=== PATIENT | male | born 1980 | race Caucasian/White ===

== ENCOUNTER 2025-04-04 16:41 | Emergency (ER) | payer BC, SELFPAY ==
[2025-04-04 16:44] VITALS: BP 136/88; PULSE 53; RESP 18; TEMP 36.6; O2SAT 98
--- NOTE | 2025-04-04 16:45 | DI.RAD_ITS ---
Exam(s) XR RIBS RT W PA LAT CHEST EXAM: XR RIBS RT W PA LAT CHEST CLINICAL HISTORY: R rib pain (7-8th ribs) after wrestling TECHNIQUE: 2D digital imaging was performed.Six images were obtained. COMPARISON: [facility] TH[facility]AC[facility] SPINE from 09/04/2014 FINDINGS: MEDIASTINUM: Normal. HEART: Normal. PULMONARY VASCULATURE: Normal. LUNGS: Clear. PLEURAL SPACE: No pleural effusion or pneumothorax. BONE:Normal. RIGHT RIBS: Normal. OTHER FINDINGS:Normal. IMPRESSION: 1. No acute pulmonary findings. 2. Unremarkable right ribs. DATA REPOSITORY: RADIATION DOSE DELIVERED:
--- NOTE | 2025-04-04 16:47 | W.ED.GENAD ---
Discharge Plan Discharge Details Chief Complaint: Chest/Rib Primary Care Provider: Unknown,Unknown ED Provider: Karen Bal Home Meds and New Rx's Prescriptions: No Action No Known Home Meds HPI General Date/Time Provider Initiated Documentation: 04/04/25 16:44. HPI Narrative: Brain is a 44year old male who presents to the emergency department today for evaluation of right anterior rib pain. He reports that he was wrestling on Thursday night, was in a bearhug and felt a pop in his right rib cage. He reports he has had a feeling of discomfort/shifting when breathing. Denies recent illness such as fever/chills, cough, shortness of breath, dizziness, other chest pain or other injuries. No previous rib fractures. Denies significant past medical history. Using ibuprofen with little improvement of symptoms. Says that the rib pain is most bothersome at night. Physical exam remarkable for mild tenderness with palpation of right anterior ribs around seventh rib. No obvious ecchymosis, deformity, or flail chest. Easy work of breathing, lung sounds clear bilaterally. Normal heart sounds. D/dx includes but is not limited to: Rib fracture, cartilage injury. Low suspicion for pneumothorax/hemothorax or pulmonary contusion based on timeline and patient's ease of breathing. I independently interpreted the following tests: Right rib x-rays, no obvious fracture noted. This was confirmed by radiologist History and presentation consistent with bruised ribs, though occult rib fracture cannot be ruled out Reviewed discharge instructions with patient, including symptomatic management, PCP f/u, and red flags indicating need for return to emergency care Related Data Home Medications ?Medication ?Instructions ?Recorded ?Confirmed Unknown [No Known Home Meds] 11/02/17 04/04/25 Allergies Allergy/AdvReac Type Severity Reaction Status Date / Time No Known Allergies Allergy Unverified 04/04/25 16:46 General Stated Complaint: Orthopedic SAMMY: 4 Exam Const General: cooperative, healthy appearing, comfortable, no acute distress, well developed and well groomed Nutritional Appearance: average body habitus and well nourished Orientation: alert and oriented x3 Chest Chest: normal inspection of the chest, localized rib tenderness with anteroposterior compression (R anterior ribs (around 6th rib)) and no masses Resp Effort & Inspection: normal respiratory effort and able to speak in complete sentences Auscultation: clear to auscultation bilaterally Cardio Rate: regular rate Rhythm: regular rhythm Skin General skin exam: no rashes or lesions noted Trauma: no lacerations or abrasions Course Vital Signs Vital signs: Vital Signs Temperature 36.6 C 04/04/25 16:44 Pulse 53 L 04/04/25 16:44 Respiratory Rate 18 04/04/25 16:44 Blood Pressure 136/88 04/04/25 16:44 Pulse Oximetry 98 04/04/25 16:44 Temperature 36.6 C 04/04/25 16:44 Pulse 53 L 04/04/25 16:44 Respiratory Rate 18 04/04/25 16:44 Blood Pressure 136/88 04/04/25 16:44 Pulse Oximetry 98 04/04/25 16:44 Pain Level 2 04/04/25 16:44 Medical Decision Making Imaging Data Radiologic Study: Radiologist's impression: Accession No. : [id number] Creator : JOE SILVEIRA Dictator : JOE SILVEIRA Plush Cutter : After School Program Teacher : JOE SILVEIRA Approver2 : Report Date : 04/04/2025 17:38:07 Exam(s) XR RIBS RT W PA LAT CHEST EXAM: XR RIBS RT W PA LAT CHEST CLINICAL HISTORY: R rib pain (7-8th ribs) after wrestling TECHNIQUE: 2D digital imaging was performed.Six images were obtained. COMPARISON: [facility] TH[facility]AC[facility] SPINE from 09/04/2014 FINDINGS: MEDIASTINUM: Normal. HEART: Normal. PULMONARY VASCULATURE: Normal. LUNGS: Clear. PLEURAL SPACE: No pleural effusion or pneumothorax. BONE:Normal. RIGHT RIBS: Normal. OTHER FINDINGS:Normal. IMPRESSION: 1. No acute pulmonary findings. 2. Unremarkable right ribs. DATA REPOSITORY: RADIATION DOSE DELIVERED: [facility] All Active Problems (Updated 04/04/25 @ 17:40 by Karen Shaikh) Rib pain on right side (Acute) Social History Smoking/Tobacco Use Status: Former Tobacco Use Smoking risk assessment performed?: Yes Drug use: Never Do you feel safe in your relationship?: Yes
[2025-04-04 17:50] VITALS: BP 132/78; PULSE 60; RESP 12; O2SAT 100
== END 2025-04-04 17:50 | disposition home or self-care (01) ==
PROVIDERS: Emergency Provider Nurse Practitioner Family
DX: R07.89 Other chest pain (principal); R07.81 Pleurodynia; Z87.891 Personal history of nicotine dependence
CPT/HCPCS: 99283; 71046; 71100